=== PATIENT | female | born 1990 | race Caucasian/White ===

== ENCOUNTER 2020-12-21 05:54 | Emergency (ER) | payer OTHER ==
[2020-12-21 06:28] LABS: Basophils # (A) 0.1 k/uL (0-0.2); Basophils % (A) 1 %; Eosinophils # (A) 0.2 k/uL (0-0.7); Eosinophils % (A) 2 %; HCT 43.9 % (34.0-46.0); HGB 15.1 gm/dL (11.4-16.0); Lymphocytes # (A) 1.4 k/uL (1.0-4.8); Lymphocytes % (A) 11 %; MCH 28.8 pg (25.0-35.0); MCHC 34.4 g/dL (31.0-37.0); MCV 83.5 fL (80.0-100.0); Mean Platelet Volume 6.9; Monocytes # (A) 0.6 k/uL (0-1.0); Monocytes % (A) 5 %; Neutrophils # (A) 9.9 k/uL (1.3-7.7); Neutrophils % (A) 80 %; Platelet Count 329 k/uL (150-450); RBC 5.26 m/uL (3.80-5.40); RDW 13.1 % (11.5-15.5); WBC 12.3 k/uL (3.8-10.6)
--- NOTE | 2020-12-21 06:45 | ED ---
Chest Pain HPI <Billy Tapia - Last Filed: 12/21/20 08:28> - General Source: patient, EMS, RN notes reviewed Mode of arrival: EMS Limitations: no limitations <Manuel Srinivasan - Last Filed: 12/21/20 09:06> - General Chief Complaint: Chest Pain Stated Complaint: Chest Pain Time Seen by Provider: 12/21/20 05:59 - History of Present Illness Initial Comments: This is a 30-year-old female presents emergency Department via EMS for complaints of chest pain. states that she's been having some palpitations have been going on for a few days. Patient denies any prior cardiac disease. She does admit that she has a smoker's cough. Patient informs me that she takes medications for her thyroid, depression, anxiety, ADHD. Patient states that she feels that "Zachary Warren Jr is controlling her heart and that she is going to be picked up by the government today". Patient is very paranoid, anxious the room (Manuel Srinivasan) - Related Data Allergies Allergy/AdvReac Type Severity Reaction Status Date / Time Penicillins Allergy Rash/Hives Verified 12/21/20 07:06 Review of Systems ROS Other: All systems not noted in ROS Statement are negative. <Billy Tapia - Last Filed: 12/21/20 08:28> ROS Other: All systems not noted in ROS Statement are negative. <Manuel Srinivasan - Last Filed: 12/21/20 09:06> ROS Statement: Those systems with pertinent positive or pertinent negative responses have been documented in the HPI. EKG Findings - EKG Comments: EKG Findings:: EKG performed at 5:58 normal sinus rhythm rate of 86 [place] 122 QRS 72 QT/QTC 366/437 <Manuel Srinivasan - Last Filed: 12/21/20 09:06> Past Medical History Past Psychological History: ADD/ADHD, Anxiety <Manuel Srinivasan - Last Filed: 12/21/20 09:06> General Exam General appearance: alert, in no apparent distress Head exam: Present: atraumatic, normocephalic, normal inspection Eye exam: Present: normal appearance, PERRL, EOMI. Absent: scleral icterus, conjunctival injection, periorbital swelling ENT exam: Present: normal exam, normal oropharynx, mucous membranes moist Neck exam: Present: normal inspection, full ROM. Absent: tenderness, meningismus, lymphadenopathy Respiratory exam: Present: normal lung sounds bilaterally. Absent: respiratory distress, wheezes, rales, rhonchi, stridor Cardiovascular Exam: Present: regular rate, normal rhythm, normal heart sounds. Absent: systolic murmur, diastolic murmur, rubs, gallop, clicks Neurological exam: Present: alert, oriented X3 Psychiatric exam: Present: anxious Skin exam: Present: warm, dry, intact, normal color. Absent: rash <Manuel Srinivasan - Last Filed: 12/21/20 09:06> Course <Billy Tapia - Last Filed: 12/21/20 08:28> Vital Signs 12/21/20 12/21/20 06:00 08:02 Temperature 98.6 F Pulse Rate 92 83 Respiratory 17 22 Rate Blood Pressure 159/104 147/94 O2 Sat by Pulse 97 100 Oximetry - Reevaluation(s) Reevaluation #1: 12/21/20 08:28 Patient was reevaluated and reexamined by myself, Dr. Tapia. Patient states she was here for palpitations and anxiety. Patient unwilling to further discuss this and requesting to leave multiple times. Patient denies suicidal or homicidal thoughts. Patient reportedly had concerns that another person was controlling her heart. Patient was also trying to go to [place] to confront some people regarding this. Patient has driven here from [place]. Patient tells me she just was going to visit friends and got turned around and now she wants to go home. Positive clinical certificate completed. I agree with PA findings. This includes diagnostic interpretation and treatment plan. (Billy Tapia) Chest Pain MDM <Manuel Srinivasan - Last Filed: 12/21/20 09:06> - MDM Patient was evaluated by EPS and was petitioned for psychiatric treatment, clinical certification was filled out by Dr. Tapia. Patient did have medical clearance. Patient have an acute psychosis, delusional thoughts, delirium (Manuel Srinivasan) Disposition <Billy Tapia - Last Filed: 12/21/20 08:28> <Manuel Srinivasan - Last Filed: 12/21/20 09:06> Clinical Impression: Acute psychosis, Delirium Disposition: TRANSFER TO PSYCH HOSP/UNIT Referrals: None,Stated [Primary Care Provider] - 1-2 days
[2020-12-21 06:55] LABS: ALT 14 U/L (4-34); AST 24 U/L (14-36); African American GFR (CKD) >90 (>60 ml/min/1.73 sqM); Albumin 4.4 g/dL (3.5-5.0); Alcohol <10 mg/dL; Alkaline Phosphatase 84 U/L (38-126); Anion Gap 11 mmol/L; Blood Urea Nitrogen 8 mg/dL (7-17); Calcium 9.9 mg/dL (8.4-10.2); Carbon Dioxide 21 mmol/L (22-30); Chloride 106 mmol/L (98-107); Glucose 108 mg/dL (74-99); Magnesium 2.1 mg/dL (1.6-2.3); Non-African American GFR(CKD) >90 (>60 ml/min/1.73 sqM); Potassium 4.2 mmol/L (3.5-5.1); Sodium 138 mmol/L (137-145); Total Bilirubin 0.4 mg/dL (0.2-1.3); Total Protein 7.4 g/dL (6.3-8.2)
[2020-12-21 06:58] LABS: Partial Thromboplastin Time 25.1 sec (22.0-30.0); Prothrombin Time 10.7 sec (9.0-12.0)
--- NOTE | 2020-12-21 07:54 | XR ---
EXAMINATION TYPE: XR chest 2V DATE OF EXAM: 12/21/2020 CLINICAL HISTORY: Chest Pain. TECHNIQUE: Frontal and lateral view of the chest. COMPARISON: None FINDINGS: The cardiomediastinal silhouette is within normal limits for size. Pulmonary vasculature i s normal. There is no focal air space opacity. No pleural effusion. No pneumothorax seen. No acute d isplaced osseous fracture. IMPRESSION: No acute cardiopulmonary process.
[2020-12-21] MEDS ORDERED: LORazepam 2 MG/ML INJ IV STA (07:56)
[2020-12-21] MEDS ORDERED: LORazepam 2 MG/ML INJ IM STA (09:04)
[2020-12-21] MEDS ORDERED: OLANZapine 10 MG VIAL IM STA (15:47)
[2020-12-21] MEDS ORDERED: LORazepam 1 MG TAB PO STA (15:48)
[2020-12-21] MEDS ORDERED: hydrOXYzine HCL 25 MG TAB PO PRN (22:19)
[2020-12-21] MEDS ORDERED: traZODone HCL 50 MG TAB PO PRN (22:19)
[2020-12-22 02:39] VITALS: RESP 18
[2020-12-22] MEDS ORDERED: ESCITALOPRAM 20 MG TAB PO SCH (09:00)
[2020-12-22] MEDS: LEVOTHYROXINE 88 MCG TAB PO SCH (10:01)
[2020-12-22] MEDS ORDERED: LORazepam 2 MG/ML INJ IM STA (11:44)
[2020-12-22 20:06] LABS: Amphetamine Screen,Urine Not Detected (NotDetected); Appearance,Urine Cloudy (Clear); Bacteria,Urine Many /hpf; Barbiturate Screen,Urine Not Detected (NotDetected); Benzodiazepines Screen,Urine Detected (NotDetected); Bilirubin,Urine Negative (Negative); Blood,Urine Moderate (Negative); Cocaine Screen,Urine Not Detected (NotDetected); Color,Urine Yellow; Glucose,Urine (UA) Negative (Negative); Ketones,Urine 1+ (Negative); Leukocyte Esterase,Urine Moderate (Negative); Methadone Screen, Urine Not Detected (NotDetected); Mucus,Urine Many /hpf; Nitrite,Urine Positive (Negative); Opiate Screen,Urine Not Detected (NotDetected); Oxycodone Screen, Urine Not Detected (NotDetected); Phencyclidine Screen,Urine Not Detected (NotDetected); Protein,Urine Trace (Negative); RBC,Urine 5 /hpf (0-5); Squamous Epithelial Cell,Urine 4 /hpf (0-4); Tricyclic Antidepressant,Urine Not Detected (NotDetected); Urn Cannabinoid Scrn Detected (NotDetected); Urobilinogen,Urine <2.0 mg/dL (<2.0); WBC,Urine 18 /hpf (0-5)
[2020-12-22] MEDS ORDERED: cefTRIAXone 1,000 MG VIAL (IM USE) IM STA (20:14)
[2020-12-23] MEDS: LEVOTHYROXINE 88 MCG TAB PO SCH (06:36)
[2020-12-23 09:32] VITALS: BP 132/84; PULSE 88; TEMP 98.2
== END 2020-12-23 09:32 ==
LOC: EC 05:54
DX: R41.0 Disorientation, unspecified (principal); F23 Brief psychotic disorder; F90.9 Attention-deficit hyperactivity disorder, unspecified type; F32.9 Major depressive disorder, single episode, unspecified; F41.9 Anxiety disorder, unspecified
CPT/HCPCS: 99285 ×2; 96374 ×2; 96372 ×2; 82075; 36415; 93005; 80053; 83735; 84484; 85025; 85610; 85730; 81001; 80306; 80320; 87086; 87077; 87186; 87635; 71046; J2060 ×2